=== PATIENT | female | born 1985 | race Caucasian/White ===

== ENCOUNTER 2018-08-01 16:14 | Emergency (ER) | payer MEDICAID, SELFPAY ==
[2018-08-01 16:15] VITALS: BP 155/118; PULSE 91; RESP 17; TEMP 36.7; O2SAT 99; BMI 32.0
--- NOTE | 2018-08-01 16:27 | RAD_ITS ---
STUDY: X-RAY - LEFT KNEE REASON FOR EXAM: Female, 33 years old. Status post fall left knee pain and abrasion TECHNIQUE: 4 view(s) of the knee. COMPARISON: None. FINDINGS: Normal visualized distal femur. Normal visualized proximal tibia and fibula. Normal proximal tibiofibular articulation. There is enthesopathy at the quadriceps insertion. There is mild degenerative arthrosis of the medial femorotibial compartment. Normal lateral femorotibial compartment. Normal patellofemoral articulation. The soft tissue structures are unremarkable. RAD/Knee 4 or More Views IMPRESSION: Mild degenerative change no visualized acute fracture. Electronically Signed: Meeta Arcos MD at 16:57 EST Tel , Service support ,
[2018-08-01] MEDS: Naproxen 500 MG Tablet PO (16:38)
--- NOTE | 2018-08-01 17:06 | ED.VISSUMM ---
- ER Visit Summary Date of Service: 08/01/18 Chief Complaint: Left knee injury History of Present Illness: The patient is a 33 F who tripped and fell onto her patio today, falling onto her left knee. She denies pain at her hip or ankle. She complains of pain only to the anterior left knee. She has been able to ambulate. She has not yet taken anything for pain. Physical Examination: Vital signs on arrival include a blood pressure of 155/118, otherwise unremarkable. Patient sitting upright in bed no acute distress. Head neck examination is unremarkable. Heart is regular rate and rhythm. Lungs sounds clear. Lower extreme examination reveals abrasions to the left anterior knee. She has full range of motion. There is mild anterior left knee tenderness. Strong distal pulses are appreciated. There is no tenderness at the hip or ankle. Test Results: Left knee x-rays reveal mild degenerative changes. Emergency Department Course and Treatment: Patient is given Naprosyn will be given a prescription for the same. Treatment Plan: [] Disposition: Discharge Impression: Left knee contusion status post fall This note was generated with [employer] dictation software. It may contain incorrect words, spelling, and punctuation that were not noted in review of the chart prior to signing ED Disposition - Plan for ED Patient: Chief Complaint: Lower Extremity Injury Referrals: Jamie Zhu MD [Primary Care Provider] -
--- NOTE | 2018-08-01 17:08 | ED.DEP ---
ED Disposition - Plan for ED Patient: Disposition: Home or Assisted Living Chief Complaint: Lower Extremity Injury Instructions: ED Contusion Lower Ext Prescriptions: Naproxen [Naprosyn] 500 mg PO BID PRN PRN #20 tablet PRN Reason: Pain Referrals: Jamie Zhu MD [Primary Care Provider] - 10-14 Days if not better
[2018-08-01 17:13] VITALS: BP 118/73; PULSE 56; RESP 15; O2SAT 96
--- OUTSIDE RECORDS SUMMARY | 2018-11-05 07:23 | XMS RPT_ITS ---
:1985 Author Organization OHIP Care Team Providers Name Role Phone Jamie Zhu Primary Care Unavailable Wanda Askew Attending Unavailable Jamie Zhu Primary Care Unavailable Zion Pereira Attending Unavailable PROBLEMS PROBLEMS DATE TYPE CONDITION / CODE ATTENDING STATUS SOURCE 09/03/2018 Unknown S20.229A - Zion Pereira Active [facility] of [facility] unspecified [facility] Hospital wall of thorax, Repository initial encounter / S20.229A(ICD-10) PROCEDURES PROCEDURES No Procedure Records FoundRESULTS RESULTS EMERGENCY DEPARTMENT Observed: 09/03/2018 Status: F Source: [place] SUMMARY 11:50 PM [facility] [place] Medical Records Department [address] [place] [address] Emergency Department Summary 09/03/18 1723 MR#: [id number] Acct: [id number] Name: MAGALY KAY Rep #: [id number] : 1985 33 From: Zion Pereira MD PCP: Jamie Zhu MD Status: DEP ER - ER Visit Summary Date of Service: 09/03/18 Chief Complaint: Back pain History of Present Illness: The patient is a 33 F with low back pain. The patient slipped on stairs. She landed on her back and complains of lower back pain, worse on the left side. No other injuries or pains. No loss of consciousness. Pain is worse with moving and breathing. No weakness or numbness. No change in bowel or bladder. Physical Examination: Afebrile and vital signs unremarkable. Head and neck are atraumatic. Abdomen soft. Back is tender to palpation over the mid lumbar spine. There is an associated area of bruising. Otherwise skin normal. Strength and sensation normal. Test Results: X-rays were negative. Emergency Department Course and Treatment: Patient treated with [place], naproxen, and Flexeril. She received a short course of the same. Follow-up with primary care. Treatment Plan: As above Disposition: Discharge Impression: 1. Lumbar back contusion This note was generated with [employer] dictation software. It may contain incorrect words, spelling, and punctuation that were not noted in review of the chart prior to signing ED Disposition - Plan for ED Patient: Chief Complaint: Back Referrals: Jamie Zhu MD [Primary Care Provider] - What to do if you have Problems For any increased pain, shortness of breath, bleeding, nausea or vomiting, chest pain, or any unexpected problems, contact your Primary Care Provider. Call [facility] ([phone]) or report to the closest Emergency Room. Call 911 if necessary. 09/03/18 2140 <Electronically signed by Zion Pereira MD> Date Zion Pereira MD Cosigner Signature (If Indicated): Date CC: Jamie Zhu MD DISCHARGE INSTRUCTION Observed: 09/03/2018 Status: F Source: [place] 11:50 PM [facility] [place] [facility] Medical Records Department [address] [place] [address] Discharge Instruction 09/03/18 1725 MR#: [id number] Acct: [id number] Name: KAYMAGALY Rep #: [id number] : 1985 33 From: Zion Pereira MD PCP: Jamie Zhu MD Status: DEP ER ED Disposition - Plan for ED Patient: Chief Complaint: Back Instructions: ED Low Back Pain Injury Prescriptions: Hydrocodone Bitart/Apap 5-325 [[place] 5MG-325MG] 1 tab PO Q6H PRN PRN 2 Days #8 tab PRN Reason: Pain Naproxen [Naprosyn] 500 mg PO BID #14 tab Cyclobenzaprine [Flexeril] 10 mg PO TID PRN #20 tab PRN Reason: Muscle Spasm Referrals: Jamie Zhu MD [Primary Care Provider] - What to do if you have Problems For any increased pain, shortness of breath, bleeding, nausea or vomiting, chest pain, or any unexpected problems, contact your Primary Care Provider. Call [facility] ([phone]) or report to the closest Emergency Room. Call 911 if necessary. 09/03/18 2350 <Electronically signed by iZon Pereira MD> Date Zion Pereira MD Cosigner Signature (If Indicated): Date CC: Jamie Zhu MD LUMBAR SPINE 2 OR 3 Observed: 09/03/2018 Status: F Source: [place] VIEWS 4:37 PM [facility] [place] [facility] Imaging Services [address] [place] [address] Lumbar Spine 2 or 3 Views MR#: [id number] Acct: [id number] Name: MAGALY KAY Rep #: [id number] : 1985 F 33 From: Gutierrez Moulton MD PCP: Jamie Zhu MD Status: [facility] ER Study: Lumbar Spine 2 or 3 Views Date of Exam: 09/03/18 Exam# [id number] Ordering Dr: Zion Pereira MD STUDY: X-RAY - LUMBAR SPINE REASON FOR EXAM: Female, 33 years old. Low back pain. Fall. TECHNIQUE: 3 view(s) of the lumbar spine were obtained. COMPARISON: None FINDINGS: Normal lumbar lordosis. There is no substantial scoliosis. There is a normal alignment of the vertebrae. Normal vertebral bodies and endplates. Normal disc space heights. There is no demonstrated fracture. The soft tissue structures are unremarkable. RAD/Lumbar Spine 2 or 3 Views IMPRESSION: Normal x-ray examination of the lumbar spine. Electronically Signed: Gutierrez Moulton MD at 17:01 EST , Service support , CC: Zion Pereira MD; Jamie Zhu MD Community Administrator: Signed EMERGENCY DEPARTMENT Observed: 08/02/2018 Status: F Source: [place] SUMMARY 12:09 AM [facility] [place] [facility] Medical Records Department [address] [place] [address] Emergency Department Summary 08/01/18 1706 MR#: [id number] Acct: [id number] Name: MAGALY KAY Rep #: [id number] : 1985 33 From: Wanda Askew MD PCP: Jamie Zhu MD Status: DEP ER - ER Visit Summary Date of Service: 08/01/18 Chief Complaint: Left knee injury History of Present Illness: The patient is a 33 F who tripped and fell onto her patio today, falling onto her left knee. She denies pain at her hip or ankle. She complains of pain only to the anterior left knee. She has been able to ambulate. She has not yet taken anything for pain. Physical Examination: Vital signs on arrival include a blood pressure of 155/118, otherwise unremarkable. Patient sitting upright in bed no acute distress. Head neck examination is unremarkable. Heart is regular rate and rhythm. Lungs sounds clear. Lower extreme examination reveals abrasions to the left anterior knee. She has full range of motion. There is mild anterior left knee tenderness. Strong distal pulses are appreciated. There is no tenderness at the hip or ankle. Test Results: Left knee x-rays reveal mild degenerative changes. Emergency Department Course and Treatment: Patient is given Naprosyn will be given a prescription for the same. Treatment Plan: [] Disposition: Discharge Impression: Left knee contusion status post fall This note was generated with [employer] dictation software. It may contain incorrect words, spelling, and punctuation that were not noted in review of the chart prior to signing ED Disposition - Plan for ED Patient: Chief Complaint: Lower Extremity Injury Referrals: Jamie Zhu MD [Primary Care Provider] - What to do if you have Problems For any increased pain, shortness of breath, bleeding, nausea or vomiting, chest pain, or any unexpected problems, contact your Primary Care Provider. Call [facility] ([phone]) or report to the closest Emergency Room. Call 911 if necessary. 08/02/18 0009 <Electronically signed by Wanda Askew MD> Date Wanda Askew MD Cosigner Signature (If Indicated): Date CC: Jamie Zhu MD DISCHARGE INSTRUCTION Observed: 08/01/2018 Status: F Source: [place] 5:09 PM [facility] [place] Medical Records Department [facility] [place] [address] Discharge Instruction 08/01/18 1708 MR#: [id number] Acct: [id number] Name: MAGALY KAY Rep #: [id number] : 1985 33 From: Wanda Askew MD PCP: Jamie Zhu MD Status: REG ER ED Disposition - Plan for ED Patient: Disposition: Home or Assisted Living Chief Complaint: Lower Extremity Injury Instructions: ED Contusion Lower Ext Prescriptions: Naproxen [Naprosyn] 500 mg PO BID PRN PRN #20 tablet PRN Reason: Pain Referrals: Jamie Zhu MD [Primary Care Provider] - 10-14 Days if not better What to do if you have Problems For any increased pain, shortness of breath, bleeding, nausea or vomiting, chest pain, or any unexpected problems, contact your Primary Care Provider. Call [facility] ([phone]) or report to the closest Emergency Room. Call 911 if necessary. 08/01/18 1709 <Electronically signed by Wanda Askew MD> Date Wanda Askew MD Cosigner Signature (If Indicated): Date CC: Jamie Zhu MD KNEE 4 OR MORE Observed: 08/01/2018 Status: F Source: [place] VIEWS 4:28 PM [facility] [place] Imaging Services [address] [place] [address] Knee 4 or More Views MR#: [id number] Acct: [id number] Name: MAGALY KAY Rep #: [id number] : 1985 F 33 From: Meeta Arcos MD PCP: Jamie Zhu MD Status: REG ER Study: Knee 4 or More Views Date of Exam: 08/01/18 Exam# [id number] Ordering Dr: Wanda Askew MD STUDY: X-RAY - LEFT KNEE REASON FOR EXAM: Female, 33 years old. Status post fall left knee pain and abrasion TECHNIQUE: 4 view(s) of the knee. COMPARISON: None. FINDINGS: Normal visualized distal femur. Normal visualized proximal tibia and fibula. Normal proximal tibiofibular articulation. There is enthesopathy at the quadriceps insertion. There is mild degenerative arthrosis of the medial femorotibial compartment. Normal lateral femorotibial compartment. Normal patellofemoral articulation. The soft tissue structures are unremarkable. RAD/Knee 4 or More Views IMPRESSION: Mild degenerative change no visualized acute fracture. Electronically Signed: Meeta Arcos MD at 16:57 EST Tel , Service support , CC: Wanda Askew MD; Jamie Zhu MD Community Administrator: Signed ALLERGIES ALLERGIES DATE TYPE / CODE NAME / CODE REACTION SEVERITY SOURCE 08/01/2018 Drug omeprazole/F Unknown Unknown [place] [facility] Allergy/4160 [id number](RX [facility] 31951(SNOMED NORM) Repository CT) 08/01/2018 Drug lamotrigine/ Unknown Unknown [facility]/4160 [id number](R Hospital 69059(SNOMED XNORM) Repository CT) 08/01/2018 Drug risperidone/ Unknown Unknown [place] [facility] Allergy/4160 [id number]( Hospital 10273(SNOMED XNORM) Repository CT) ENCOUNTERS ENCOUNTERS ADMIT/DISCHARGE ACCOUNT ADMITTING ENCOUNTER LOCATION SOURCE NUMBER CLASS 09/03/2018/ [id number] Emergency [facility] Da 9 [facility] ing:ED Repository 08/01/2018/ [id number] Emergency [place] Da 8 [facility] ing:ED Repository PAYERS PAYERS ENCOUNTER GUARANTOR PAYER SUBSCRIBER SOURCE 09/03/2018 MAGALY Lin Primary MAGALY Ceballos Da [id number] NOLD Insurance:CARESOURCEP SANDERSDOB: [facility] Number: [id number] Hospital 94503Vcs: [phone]) [id number] Repository [phone] () Date:2018-09-03 [address]ATTN: [place] [address]TF: 09/03/2018 Secondary NOT GIVENUNK [place] Insurance:SELF PAY [facility] Number: Effective Repository Date:2018-09-03 08/01/2018 MAGALY M Primary MAGALY Arana [id number] [place] [facility] Number: [id number] Hospital 12[address]Iyp: [phone] [id number] Repository [phone] () Date:2018-08-01P [address]ATTN: [place] [address]TS: 08/01/2018 Secondary NOT GIVENUNK [place] Insurance:SELF PAY [facility] Number: Effective Repository Date:2018-08-01
== END 2018-08-01 17:18 | disposition home or self-care (01) ==
PROVIDERS: Emergency Provider Emergency Medicine; Family Provider Family Medicine; PCP Family Medicine
DX: S80.02XA Contusion of left knee, initial encounter (principal); W01.10XA Fall on same level from slipping, tripping and stumbling with subsequent striking against unspecified object, initial encounter; Y93.9 Activity, unspecified; Y92.008 Other place in unspecified non-institutional (private) residence as the place of occurrence of the external cause; Y99.9 Unspecified external cause status; F32.9 Major depressive disorder, single episode, unspecified; F41.9 Anxiety disorder, unspecified; Z72.0 Tobacco use; Z79.899 Other long term (current) drug therapy
CPT/HCPCS: 73564; 99283

== ENCOUNTER 2018-09-03 15:41 | Emergency (ER) | payer MEDICAID, SELFPAY ==
[2018-09-03 15:42] VITALS: BP 157/117; PULSE 99; RESP 16; TEMP 36.4; O2SAT 100; BMI 30.9
--- NOTE | 2018-09-03 16:43 | RAD_ITS ---
STUDY: X-RAY - LUMBAR SPINE REASON FOR EXAM: Female, 33 years old. Low back pain. Fall. TECHNIQUE: 3 view(s) of the lumbar spine were obtained. COMPARISON: None FINDINGS: Normal lumbar lordosis. There is no substantial scoliosis. There is a normal alignment of the vertebrae. Normal vertebral bodies and endplates. Normal disc space heights. There is no demonstrated fracture. The soft tissue structures are unremarkable. RAD/Lumbar Spine 2 or 3 Views IMPRESSION: Normal x-ray examination of the lumbar spine. Electronically Signed: Gutierrez Moulton MD at 17:01 EST , Service support ,
[2018-09-03] MEDS: Naproxen 500 MG Tablet PO (16:54)
[2018-09-03] MEDS: HYDROcodone Bitartrate/Apap 5/325 Tablet PO (16:54)
--- NOTE | 2018-09-03 17:25 | ED.DCSUM_ITS ---
- ER Visit Summary Date of Service: 09/03/18 Chief Complaint: Back pain History of Present Illness: The patient is a 33 F with low back pain. The patient slipped on stairs. She landed on her back and complains of lower back pain, worse on the left side. No other injuries or pains. No loss of consciousness. Pain is worse with moving and breathing. No weakness or numbness. No change in bowel or bladder. Physical Examination: Afebrile and vital signs unremarkable. Head and neck are atraumatic. Abdomen soft. Back is tender to palpation over the mid lumbar spine. There is an associated area of bruising. Otherwise skin normal. Strength and sensation normal. Test Results: X-rays were negative. Emergency Department Course and Treatment: Patient treated with [place], naproxen, and Flexeril. She received a short course of the same. Follow-up with primary care. Treatment Plan: As above Disposition: Discharge Impression: 1. Lumbar back contusion This note was generated with [employer] dictation software. It may contain incorrect words, spelling, and punctuation that were not noted in review of the chart prior to signing ED Disposition - Plan for ED Patient: Chief Complaint: Back Referrals: Jamie Zhu MD [Primary Care Provider] -
--- NOTE | 2018-09-03 17:25 | ED.DEP ---
ED Disposition - Plan for ED Patient: Chief Complaint: Back Instructions: ED Low Back Pain Injury Prescriptions: Hydrocodone Bitart/Apap 5-325 [[place] 5MG-325MG] 1 tab PO Q6H PRN PRN 2 Days #8 tab PRN Reason: Pain Naproxen [Naprosyn] 500 mg PO BID #14 tab Cyclobenzaprine [Flexeril] 10 mg PO TID PRN #20 tab PRN Reason: Muscle Spasm Referrals: Jamie Zhu MD [Primary Care Provider] -
--- OUTSIDE RECORDS SUMMARY | 2018-11-08 16:33 | XMS RPT_ITS ---
:1985 Author Organization OHIP Care Team Providers Name Role Phone Jamie Zhu Primary Care Unavailable Zion Pereira Attending Unavailable Jamie Zhu Primary Care Unavailable Wanda Askew Attending Unavailable PROBLEMS PROBLEMS DATE TYPE CONDITION / CODE ATTENDING STATUS SOURCE 09/03/2018 Unknown S20.229A - Zion Pereira Active [facility] Contusion of [facility] unspecified [facility] Hospital wall of thorax, Repository initial encounter / S20.229A(ICD-10) PROCEDURES PROCEDURES No Procedure Records FoundRESULTS RESULTS EMERGENCY DEPARTMENT Observed: 09/03/2018 Status: F Source: DA SUMMARY 11:50 PM [facility] [place] [facility] Medical Records Department [address] [place] [address] Emergency Department Summary 09/03/18 1723 MR#: [id number] Acct: [id number] Name: MAGALY KAY Rep #: [id number] : 1985 33 From: Zion Pereira MD [...] Department Course and Treatment: Patient treated with [place], naproxen, and Flexeril. She received a short course of the same. Follow-up with primary care. Treatment Plan: As above Disposition: Discharge Impression: 1. Lumbar back contusion This note was generated with [employer] dictation software. It may contain incorrect words, [...] your Primary Care Provider. Call [facility] ([phone]) or report to the closest Emergency Room. Call 911 if necessary. 09/03/18 2420 <Electronically signed by Zion Pereira MD> Date Zion Pereira MD Cosigner Signature (If Indicated): Date CC: Jamie Zhu MD DISCHARGE INSTRUCTION Observed: 09/03/2018 Status: F Source: [place] 11:50 PM [facility] [place] [facility] Medical Records Department [address] [place] [address] Discharge Instruction 09/03/18 1725 MR#: [id number] Acct: [id number] Name: KAYMAGALY Rep #: [id number] : 1985 33 From: Zion Pereira MD PCP: Jamie Zhu MD Status: DEP ER ED Disposition - Plan for ED Patient: Chief Complaint: Back Instructions: ED Low Back Pain Injury Prescriptions: Hydrocodone Bitart/Apap 5-325 [[place] 5MG-325MG] 1 tab PO Q6H PRN PRN [...] problems, contact your Primary Care Provider. Call [place] [facility] ([phone]) or report to the closest Emergency Room. Call 911 if necessary. 09/03/18 2350 <Electronically signed by Zion Pereira MD> Date Zion Pereira MD Cosigner Signature (If Indicated): Date CC: Jamie Zhu MD LUMBAR SPINE 2 OR 3 Observed: 09/03/2018 Status: F Source: [place] VIEWS 4:37 PM [facility] [place] [facility] Imaging Services [address] [place] [address] Lumbar Spine 2 or 3 Views MR#: [id number] Acct: [id number] Name: MAGALY KAY Rep #: [id number] : 1985 F 33 From: Gutierrez Moulton MD PCP: Jamie Zhu MD Status: [facility] ER Study: Lumbar Spine 2 or 3 Views Date of Exam: 09/03/18 Exam# [id number] Ordering Dr: Zion Pereira MD STUDY: X-RAY [...] CC: Zion Pereira MD; Jamie Zhu MD Furnace Repair Mechanic: Signed EMERGENCY DEPARTMENT Observed: 08/02/2018 Status: F Source: [place] SUMMARY 12:09 AM [facility] [place] [facility] Medical Records Department [address] [place] [address] Emergency Department Summary 08/01/18 1706 MR#: [id number] Acct: [id number] Name: MAGALY KAY Rep #: [id number] : 1985 33 From: Wanda Askew MD [...] post fall This note was generated with [employer] dictation software. It may contain incorrect words, [...] problems, contact your Primary Care Provider. Call [place] [facility] ([phone]) or report to the closest Emergency Room. Call 911 if necessary. 08/02/18 0009 <Electronically signed by Wanda Askew MD> Date Wanda Askew MD Cosigner Signature (If Indicated): Date CC: Jamie Zhu MD DISCHARGE INSTRUCTION Observed: 08/01/2018 Status: F Source: [place] 5:09 PM [facility] [place] [facility] Medical Records Department [facility] [place] [address] Discharge Instruction 08/01/18 1708 MR#: [id number] Acct: [id number] Name: MAGALY KAY Rep #: [id number] : 1985 33 From: Wanda Askew MD [...] your Primary Care Provider. Call [facility] ([phone]) or report to the closest Emergency Room. Call 911 if necessary. 08/01/18 1709 <Electronically signed by Wanda Askew MD> Date Wanda Askew MD Cosigner Signature (If Indicated): Date CC: Jamie Zhu MD KNEE 4 OR MORE Observed: 08/01/2018 Status: F Source: [place] VIEWS 4:28 PM [facility] [place] [facility] Imaging Services [address] [place] [address] Knee 4 or More Views MR#: [id number] Acct: [id number] Name: MAGALY KAY Rep #: [id number] : 1985 F 33 From: Meeta Arcos MD PCP: Jamie Zhu MD Status: REG ER Study: Knee 4 or More Views Date of Exam: 08/01/18 Exam# [id number] Ordering Dr: Wanda Askew MD STUDY: X-RAY [...] CC: Wanda Askew MD; Jamie Zhu MD Furnace Repair Mechanic: Signed ALLERGIES ALLERGIES DATE TYPE / CODE NAME / CODE REACTION SEVERITY SOURCE 08/01/2018 Drug omeprazole/F Unknown Unknown [place] [facility]/4160 [id number]([facility] 44788(SNOMED NORM) Repository CT) 08/01/2018 Drug lamotrigine/ Unknown Unknown [facility]/4160 [id number](R Hospital 27671(SNOMED XNORM) Repository CT) 08/01/2018 Drug risperidone/ Unknown Unknown [place] [facility] All[facility]/4160 [id number]( Hospital 73238(SNOMED XNORM) Repository CT) ENCOUNTERS ENCOUNTERS ADMIT/DISCHARGE ACCOUNT ADMITTING ENCOUNTER LOCATION SOURCE NUMBER CLASS 09/03/2018/ [id number] Emergency Da Da 9 [facility] ing:ED Repository 08/01/2018/ [id number] Emergency [place] Da 8 [facility] ing:ED Repository PAYERS PAYERS ENCOUNTER GUARANTOR PAYER SUBSCRIBER SOURCE 09/03/2018 MAGALY Lin Primary MAGALY Ceballos Da [id number] NOLD Insurance:CARESOURCEP SANDERSDOB: [facility] Number: [id number] Hospital [address]Dyz: [phone] [id number] Repository [phone] () Date:2018-09-03 [address]ATTN: [place] [address]JB: 09/03/2018 Secondary NOT GIVENUNK [place] Insurance:SELF PAY [facility] Number: Effective Repository Date:2018-09-03 08/01/2018 MAGALY M Primary MAGALY Arana [id number] NOLD Insurance[facility] Number: [id number] Hospital [address]Mzt: [phone]) [id number] Repository [phone] () Date:2018-08-01P [address]ATTN: [place] [address]QQ: 08/01/2018 Secondary NOT GIVENUNK [place] Insurance:SELF PAY [facility] Number: Effective Repository Date:2018-08-01
== END 2018-09-03 17:40 | disposition home or self-care (01) ==
PROVIDERS: Emergency Provider Emergency Medicine; Family Provider Family Medicine; PCP Family Medicine
DX: S30.0XXA Contusion of lower back and pelvis, initial encounter (principal); W10.9XXA Fall (on) (from) unspecified stairs and steps, initial encounter; Y93.9 Activity, unspecified; Y92.9 Unspecified place or not applicable; Y99.9 Unspecified external cause status; Z72.0 Tobacco use
CPT/HCPCS: 72100; 99282

== ENCOUNTER 2019-05-10 05:15 | Emergency (ER) | payer MEDICAID, SELFPAY ==
[2019-05-10 05:15] VITALS: BP 214/133; PULSE 95; RESP 26; TEMP 36.1; O2SAT 88; BMI 31.6
--- NOTE | 2019-05-10 05:20 | RAD_ITS ---
STUDY: X-RAY CHEST REASON FOR EXAM: Female, 34 years old. SOB TECHNIQUE: Single frontal view of the chest. COMPARISON: 03/28/2016 FINDINGS: The lungs are clear and expanded. There is no demonstrated pleural abnormality. Normal size heart. Normal mediastinum and bony. Normal visualized pulmonary arteries. Normal visualized aortic arch and descending thoracic aorta. Normal visualized thoracic spine. Normal visualized ribs, clavicles, and shoulders. There is no demonstrated abnormality of the visualized soft tissue structures of the upper abdomen. RAD/Chest 1 View (Portable) IMPRESSION: Normal x-ray examination of the chest. Electronically Signed: Jamie Kothari MD at 5:52 EDT Tel , Service support ,
[2019-05-10 05:24] VITALS: O2SAT 95
[2019-05-10 05:30] VITALS: PULSE 85; RESP 14; O2SAT 97
[2019-05-10] MEDS: Ipratropium/Albuterol Sulfate 3 ML AMPUL.NEB INHALATION (05:30)
[2019-05-10] MEDS: Albuterol 2.5 MG/3 ML VIAL.NEB. INHALATION ×2 (05:30→05:53)
[2019-05-10] MEDS: predniSONE 20 MG Tablet 60 MG PO (05:42)
--- NOTE | 2019-05-10 05:43 | ED.VIS.DYS ---
History of Present Illness Chief Complaint: Asthma Informant: Patient Narrative: Patient presenting for evaluation secondary to shortness of breath. Patient has an underlying history of asthma. She reports that she has been out of her albuterol inhaler over the course of about the last week. She states that she has had a mild cough associated with production of clear sputum. She reports that she woke up tonight and she was feeling significantly short of breath. That was associated with wheezing, she did not have anything to alleviate that as she was out of her inhaler. Patient denies any chest pain or fevers. Patient is a smoker. Past Medical History - Allergies and Home Meds Allergies/Adverse Reactions: Allergies lamotrigine [From Lamictal] Allergy (Verified 08/01/18 16:14) Unknown omeprazole Allergy (Verified 08/01/18 16:14) Unknown risperidone Allergy (Verified 08/01/18 16:14) Unknown Primary Care Physician: Jamie Zhu MD [Primary Care Provider] - Past Medical History: - - Asthma Surgical History: tonsillectomy, - - Tubal ligation. Smoking Status: Current every day smoker Review of Systems All systems negative except as indicated General: Denies: Chills, Fever Respiratory: Reports: Dyspnea, Cough Physical Exam Vital Signs/Narrative: Vital Signs Temp Pulse Resp BP Pulse Ox 05/10/19 05:30 85 14 97 05/10/19 05:15 97 F L 95 26 H 214/133 H 88 General: Well nourished, Well developed, Acute Distress - Mild secondary to respiratory discomfort Head: Normocephalic, Atraumatic Eyes: Perrl, EOMI ENT: Moist mucous membranes, No rhinorrhea Neck: Supple, Nontender Cardiovascular: Regular rate, Regular rhythm, No murmurs Respiratory: - - Patient is speaking in 5-10 word sentences. She has some increased respiratory effort but does not appear to be in overt respiratory distress. Prolonged expiratory phase with wheezes are noted throughout the lung cloud. Patient does not have retractions at this time. Abdomen: Soft, Nontender, Nondistended, Normal bowel sounds Back: Nontender, Normal Inspection Extremities: Nontender, No edema Skin: Diaphoresis, - - Cool Neurological: Alert, Oriented x3, Cranial nerves II-XII grossly intact, Normal Strength, Normal Sensation Psychological: Normal affect, Normal Mood Diagnostic/Tx/Re-eval Chest X-Ray - ED: 1 View, Read by ED Physician, Read by Radiologist, Normal - Medical Decision Making Patient presented for evaluation secondary to shortness of breath. On initial presentation, the patient seemed to be having a moderate amount of difficulty breathing, and had some diaphoresis. IV was established laboratory studies were obtained. Single view of the chest by my personal interpretation as well as radiology is found to be negative. CBC was unremarkable. Patient was given a DuoNeb and 2 albuterol treatments as well as prednisone. She had significant symptomatic improvement, and was actually able to ambulate in the emergency department to not be overly dyspneic, and maintain saturations 95% and above. At this point I believe that the patient's appropriate disposition is home with prednisone and albuterol. Patient was given signs and symptoms for which to return. She voiced understanding of this. Patient was noted to be hypertensive upon arrival, I believe that likely secondary to her discomfort. She will follow-up with primary care. Disposition: Home ED Disposition - Plan for ED Patient: Disposition: Home or Assisted Living Diagnosis: Asthma exacerbation Instructions: ASTHMA, Acute (Adult) Prescriptions: Prednisone [Deltasone] 60 mg PO DAILY #15 tab Prescription Printed Albuterol Aerosols [Ventolin Aerosols] 2.5 mg INHALATION Q4H PRN #25 vial Prescription Printed Albuterol Inhaler [Ventolin Hfa] 2 puff INHALATION Q4H PRN PRN #1 inhaler PRN Reason: Wheezing Prescription Printed Referrals: Jamie Zhu MD [Primary Care Provider] - 3-5 Days
[2019-05-10 05:53] VITALS: PULSE 89; RESP 18
[2019-05-10 06:00] LABS: Absolute Lymphocyte Count 3.16 X10^3/uL (0.83-4.51); Absolute Neutrophil Count 3.7 X10^3/uL (2.0-7.7); Basophil# 0.12 X10^3/uL; Basophil% 1.4 % (0-1); Eosinophil# 0.53 X10^3/uL; Eosinophils% 6.3 % (0-5); Hematocrit 43.3 % (37-47); Hemoglobin 13.3 g/dL (12.0-15.0); Lymphocyte # 3.16 X10^3/ul (4.0); Lymphocyte % 37.4 % (19-41); Mean Corp Hgb Conc 30.7 g/dL (32-36); Mean Corpuscular Hgb 25.3 pg (27.0-32.0); Mean Corpuscular Volume 82.5 fL (81-99); Mean Platelet Vol. 11.4 fl (6.2-12.0); Monocyte# 0.87 X10^3/uL; Monocyte% 10.3 % (0-10); NRBC Flagged by Analyzer 0 % (0-5); Neutrophil # 3.73 X10^3/uL (2.7-7.7); Neutrophil % 44.2 % (47-70); Platelet Count 444 K/mm3 (150-450); RBC Distribution Width CV 15.9 % (11.6-14.6); RBC Distribution Width SD 47.3 fl (35.1-43.9); Red Blood Count 5.25 M/mm3 (4.2-5.4); White Blood Count 8.4 K/mm3 (4.4-11.0)
[2019-05-10 06:22] LABS: Anion Gap 6 (5-15); BUN 8 mg/dL (7-18); BUN/Creat Ratio 11.6 RATIO (10-20); Calcium,Total 8.3 mg/dL (8.5-10.1); Chloride 106 mmol/L (98-107); Creatinine, Serum 0.69 mg/dL (0.55-1.02); EST Glomerular Filtration Rate 104 mL/min (>60); Est Glom Filt Rate - Afr Amer 126 mL/min (>60); Estimated Creatinine Clearance 103.38 ml/min; Glucose 117 mg/dL (74-106); Potassium 3.8 mmol/L (3.5-5.1); Sodium Level 143 mmol/L (136-145)
[2019-05-10 06:24] VITALS: BP 136/84; PULSE 99; RESP 18; O2SAT 95
== END 2019-05-10 06:28 | disposition home or self-care (01) ==
PROVIDERS: Emergency Provider Emergency Medicine; Family Provider Family Medicine; PCP Family Medicine
DX: J45.901 Unspecified asthma with (acute) exacerbation (principal); R03.0 Elevated blood-pressure reading, without diagnosis of hypertension; F17.200 Nicotine dependence, unspecified, uncomplicated; Z79.899 Other long term (current) drug therapy; Z88.8 Allergy status to other drugs, medicaments and biological substances
CPT/HCPCS: 71045; 80048; 85025; 94640; 99285; A4216

== ENCOUNTER 2019-05-21 22:22 | Emergency (ER) | payer MEDICAID, SELFPAY ==
[2019-05-21 22:24] VITALS: BP 145/97; PULSE 75; RESP 16; TEMP 37; O2SAT 98; BMI 32.3
--- NOTE | 2019-05-21 22:41 | ED.VIS.GEN ---
History of Present Illness Chief Complaint: Rash Narrative: Patient is a 34-year-old female who presents with a rash. She complains of a painful rash on the left upper back. She does has a history of shingles and believes that this is shingles again. No fevers nausea vomiting chest pain shortness of breath. Review of systems otherwise negative. She denies any recent illness. Past Medical History - Allergies and Home Meds Allergies/Adverse Reactions: Allergies lamotrigine [From Lamictal] Allergy (Verified 05/21/19 22:24) Unknown omeprazole Allergy (Verified 05/21/19 22:24) Unknown risperidone Allergy (Verified 05/21/19 22:24) Unknown Primary Care Physician: Jamie Zhu MD [Primary Care Provider] - Past Medical History: - - Asthma Surgical History: tonsillectomy, - - Tubal ligation. Smoking Status: Current every day smoker Review of Systems All systems negative except as indicated General: Denies: Fever Cardiovascular: Denies: Chest pain Respiratory: Denies: Dyspnea Gastrointestinal: Denies: Nausea, Vomiting Skin: Reports: Rash Physical Exam Vital Signs/Narrative: Vital Signs Temp Pulse Resp BP Pulse Ox 05/21/19 22:24 98.6 F 75 16 145/97 H 98 Inital Vital Signs reviewed: Yes General: Well nourished, Well developed Head: Normocephalic Eyes: EOMI ENT: Moist mucous membranes Neck: Supple Cardiovascular: Regular rate Respiratory: No distress Skin: Normal color, - - Patient has a small patch of vesicular rash in the left lower posterior thoracic region Neurological: Alert Psychological: Normal affect Diagnostic/Tx/Re-eval - Medical Decision Making Examination is consistent with shingles, she was given first dose of acyclovir here as well as a prescription for the same and was advised to follow-up as an outpatient. She was discharged. ED Disposition - Plan for ED Patient: Disposition: Home or Assisted Living Diagnosis: Shingles Instructions: Shingles (Herpes Zoster) Prescriptions: Acyclovir [Zovirax] 800 mg PO 5X/DAY #35 tab Prescription Printed Referrals: Jamie Zhu MD [Primary Care Provider] -
[2019-05-21] MEDS: Acyclovir 800 MG Tablet PO (23:05)
[2019-05-21 23:08] VITALS: PULSE 78; RESP 14; O2SAT 99
== END 2019-05-21 23:09 | disposition home or self-care (01) ==
LOC: ED 22:48
PROVIDERS: Emergency Provider Emergency Medicine; Family Provider Family Medicine; PCP Family Medicine
DX: B02.9 Zoster without complications (principal); J45.909 Unspecified asthma, uncomplicated; F17.200 Nicotine dependence, unspecified, uncomplicated; Z79.899 Other long term (current) drug therapy; Z88.8 Allergy status to other drugs, medicaments and biological substances
CPT/HCPCS: 99282

== ENCOUNTER 2019-07-31 07:43 | Observation (INO) | payer MEDICAID, SELFPAY ==
[2019-07-31] VITALS (10 sets, daily range): BP systolic 120–162; BP diastolic 76–113; PULSE 82–104; RESP 9–34; TEMP 36.1–36.7; O2SAT 86–98; BMI 33.3; BMI 33.1
--- NOTE | 2019-07-31 07:44 | RAD_ITS ---
STUDY: X-RAY CHEST REASON FOR EXAM: Female, 34 years old. Shortness of breath. Wheezing. TECHNIQUE: Single AP portable view of the chest. COMPARISON: Comparison is made with prior study dated May 10, 2019. FINDINGS: EKG electrodes are seen. The lungs are clear and expanded. There is no demonstrated pleural abnormality. Normal size heart. Normal mediastinum and bony. Normal visualized pulmonary arteries. Normal visualized aortic arch and descending thoracic aorta. Normal visualized thoracic spine. Normal visualized ribs, clavicles, and shoulders. There is no demonstrated abnormality of the visualized soft tissue structures of the upper abdomen. RAD/Chest 1 View (Portable) IMPRESSION: Normal x-ray examination of the chest. Electronically Signed: Josue Olsen, at 8:25 EST , Service support ,
[2019-07-31] MEDS: Ipratropium/Albuterol Sulfate 3 ML AMPUL.NEB INHALATION (07:54)
[2019-07-31] MEDS: Albuterol 2.5 MG/3 ML VIAL.NEB. INHALATION ×5 (07:56→09:32)
--- NOTE | 2019-07-31 08:01 | ED.DCSUM_ITS ---
- ER Visit Summary Date of Service: 07/31/19 Chief Complaint: Shortness of breath History of Present Illness: The patient is a [address] Zhu. She has a history of asthma. She reports that she ran out of her albuterol MDI yesterday. She has shortness of breath that began yesterday and had gradually gotten worse. She reports that it is much worse this morning. It severe. She reports that she has a cough here and there that is productive green sputum. She denies any blood in her sputum. No fever, chills, or chest pain. She reports that she had similar symptoms in the past with her asthma. She does smoke 1 pack/day. Physical Examination: Vitals: 96.9, 162/113, 97, 26, 65% on room air which is hypoxic General: Well-nourished and well-developed. Head: Normocephalic atraumatic. Neck: Supple, no lymphadenopathy. No JVD. Nontender. Cardiovascular: Regular rate and rhythm. No murmurs. Respiratory: Severe respiratory distress. She has wheezing bilaterally with greatly decreased air movement. Abdominal: Soft, nontender, nondistended, normal bowel sounds. No guarding, rebound, or peritoneal signs. Back: Nontender. Extremities: Nontender, no edema. Skin: Normal color, no rash. Neurologic: Alert and oriented ?3. Cranial nerves II through XII are intact. Normal strength and sensation. Patient is lethargic and falls asleep during questioning. However, she is appropriate when she is awake. She arouses to voice. Psych: Normal affect. Test Results: CBC shows eosinophils of 6 and monocytes of 10. Chem-7 shows a glucose 144 and calcium of 8.0. Flu was negative. test was negative. ABG shows a pH of 7.317 with a CO2 of 56.6 and PO2 of 91 on 6 L nasal cannula. Clinical Impression(s) from Imaging Studies Chest X-Ray 07/31/19 07:44 IMPRESSION: Normal x-ray examination of the chest. Electronically Signed: Josue Olsen, at 8:25 EST , Service support , Emergency Department Course and Treatment: Patient had an IV placed. She was given a liter of normal saline. She was given albuterol and Atrovent aerosols. She was given Solu-Medrol and magnesium IV. Altogether she received 5 albuterol and 1 Atrovent aerosol. On repeat exam her pulse ox is still 92% on 4 L nasal cannula. However, she looks much more comfortable. Treatment Plan: The patient was discussed with Dr. Reyes. She will be admitted to the hospital for further evaluation and treatment. Disposition: Admitted in improved, but serious condition. Impression: 1. Asthma exacerbation. 2. Hypoxia. 3. Critical care time 33 minutes. This note was generated with [employer] dictation software. It may contain incorrect words, spelling, and punctuation that were not noted in review of the chart prior to signing ED Disposition - Plan for ED Patient: Referrals: Jamie Zhu MD [Primary Care Provider] -
[2019-07-31] MEDS: 0.9% Normal Saline 1,000 ML 999 ML IV (08:09)
[2019-07-31] MEDS: MethylPREDNISolone 125 MG/2 ML Vial IV (08:10)
[2019-07-31 08:21] LABS: Allen Test POS; Base Excess 3 mmol/L (-2 to +2); Blood Gas Specimen Type ART; O2 Delivery Device Nasal Can; PO2 91 mmHG (75-100); SITE L Radial; SO2 96 % (95-99); Time Given 813; Total Carbon Dioxide 31 mmol/L; pCO2 56.6 mmHg (35-45); pH 7.32 (7.35-7.45)
[2019-07-31 08:24] LABS: Absolute Lymphocyte Count 2.12 X10^3/uL (0.83-4.51); Absolute Neutrophil Count 4.8 X10^3/uL (2.0-7.7); Basophil# 0.05 X10^3/uL; Basophil% 0.6 % (0-1); Eosinophil# 0.53 X10^3/uL; Eosinophils% 6.3 % (0-5); Hematocrit 38.9 % (37-47); Lymphocyte # 2.12 X10^3/ul (4.0); Lymphocyte % 25.2 % (19-41); Mean Corp Hgb Conc 30.8 g/dL (32-36); Mean Corpuscular Hgb 26.2 pg (27.0-32.0); Mean Corpuscular Volume 84.9 fL (81-99); Mean Platelet Vol. 10.9 fl (6.2-12.0); Monocyte# 0.85 X10^3/uL; Monocyte% 10.1 % (0-10); NRBC Flagged by Analyzer 0 % (0-5); Neutrophil # 4.82 X10^3/uL (2.7-7.7); Neutrophil % 57.4 % (47-70); Platelet Count 341 K/mm3 (150-450); RBC Distribution Width CV 16.1 % (11.6-14.6); RBC Distribution Width SD 50.2 fl (35.1-43.9); Red Blood Count 4.58 M/mm3 (4.2-5.4); White Blood Count 8.4 K/mm3 (4.4-11.0)
[2019-07-31 08:37] LABS: Internal QC Validated? YES +Cl - CLEAR BKGD
[2019-07-31 08:38] LABS: Pregnancy, Serum, hCG Quali. NEGATIVE Negative
[2019-07-31 08:43] LABS: Anion Gap 3 (5-15); BUN 8 mg/dL (7-18); BUN/Creat Ratio 9.8 RATIO (10-20); Chloride 104 mmol/L (98-107); Creatinine, Serum 0.81 mg/dL (0.55-1.02); EST Glomerular Filtration Rate 85 mL/min (>60); Est Glom Filt Rate - Afr Amer 103 mL/min (>60); Estimated Creatinine Clearance 88.06 ml/min; Glucose 144 mg/dL (74-106); Potassium 3.5 mmol/L (3.5-5.1); Sodium Level 139 mmol/L (136-145)
[2019-07-31] MEDS: Magnesium Sulfate 2 GM IV IV (08:47)
--- NOTE | 2019-07-31 10:40 | PCM.HP.STD ---
Problem List (1) Acute respiratory failure Status: Acute (2) Acute severe asthma Status: Acute (3) Tobacco abuse Status: Chronic (4) Bronchial asthma Status: Chronic History of Present Illness Date of Admission: 07/31/19 Chief Complaint: Shortness of breath. The patient is a 34 year old F patient with past medical history as mentioned above presented to the emergency room because of shortness of breath. Her symptoms started 2 days ago with gradually progressive increasing shortness of breath, onset was with exertion but worsened and became even at rest, not relieved with rest associated with productive cough with minimal sputum as well as wheezing and without fever or chills. She reported associated nasal congestion. Denied chest pain. She stated that she ran out of her albuterol inhaler yesterday. Denied sick contacts. She denies previous admissions to the hospital for acute asthma exacerbation and she denied ICU admissions or mechanical ventilation for asthma exacerbation. In the emergency department, patient was very dyspneic, tachypneic and she was hypoxic pulse ox was 65% on room air upon arrival. She received IV Solu-Medrol, IV magnesium sulfate, DuoNeb nebulizer x1 and 4 rounds of albuterol nebulizer and she remained very dyspneic and tachypneic with audible wheezing. She is requiring up to 6 L of oxygen, was tachycardic and blood pressure was elevated upon arrival. Her blood pressure improved as well as a heart rate. Routine blood work was unremarkable. ABG revealed pH of 7.32, PCO2 56 and PO2 of 91. Chest x-ray showed no acute infiltrate or consolidation. She is being admitted for acute severe asthma complicated by acute hypoxic and hypercapnic respiratory failure. Past Medical History Past Medical History (Chronic Problems): Chronic Problems Tobacco abuse (Chronic) Bronchial asthma (Chronic) Allergies lamotrigine [From Lamictal] Allergy (Verified 07/31/19 08:21) Unknown omeprazole Allergy (Verified 07/31/19 08:21) Unknown risperidone Allergy (Verified 07/31/19 08:21) Unknown Home Medications: Ambulatory Orders Medication Instructions Recorded Albuterol Inhaler [Ventolin Hfa] 1 - 2 puff INHALATION Q4H PRN PRN 08/09/17 #1 inhaler Albuterol Aerosols [Ventolin 2.5 mg INHALATION Q4H PRN #25 vial 05/10/19 Aerosols] Surgical History: cholecystectomy, tonsillectomy, - - Tubal ligation. Psychiatric History: No pertinent psych hx FOREST ECONOMIST History: No pertinent FOREST ECONOMIST history Smoking Status: Current every day smoker Tobacco Use: Cigarettes Alcohol: None Drugs: None - *Family History Maternal History Items: No pertinent history, - - Patient mentioned that she does not know her family history of medical problems. Paternal History Items: No pertinent history Review of Systems Constitutional: Denies: Anorexia, Chills, Fever, Weakness Eyes: Denies: Blurred vision, Double vision, Drainage, Redness HEENT: Reports: Nasal Congestion. Denies: Difficulty Hearing, Ear Pain, Eye Pain, Post Nasal Drip, Sore Throat Cardiovascular: Denies: Chest Pain, Chest Pressure, Edema, Heaviness, Light Headedness, Palpitations, Syncope Respiratory: Reports: Cough, Shortness of Breath, Shortness of breath at rest, Shortness of breath upon exertion, Sputum production, Wheezing. Denies: Hemoptysis, Pleuritic Pain Gastrointestinal: Denies: Abdominal Pain, Constipation, Diarrhea, Nausea, Vomiting Genitourinary: Denies: Dysuria, Frequency, Hematuria Musculoskeletal: Denies: Arm Pain, Back Pain, Foot Pain Skin: Denies: Dryness, Rash Neurological: Denies: Balance problems, Blurred vision, Double vision, Change in Speech, Slurred speech, Confusion, Focal weakness, Headaches, Incoordination Psychiatric: Denies: Anxiety, Depression Endocrine: Denies: Change in Body Habitus, Polydipsia, Polyuria VTE Information - Inpt Only VTE Present on Admission: No VTE Mechan Device Prophylaxis: None VTE Pharm Prophylaxis ordered?: No Patient Problems: Active and Suspected Problems Acute respiratory failure (Acute) Acute severe asthma (Acute) - Physical Exam Vitals/I&O's: Vital Signs Temp Pulse Resp BP Pulse Ox 96.9 F L 99 16 123/81 H 92 07/31/19 07:48 07/31/19 10:23 07/31/19 10:23 07/31/19 10:23 07/31/19 10:23 Oxygen Flow Rate (L/min) 3 Oxygen Delivery Method Nasal Cannula Weight: 200 lb 2.876 oz Body Mass Index (BMI) 33.3 Intake and Output for Last 24 Hours 07/29/19 07/30/19 07/31/19 23:59 23:59 23:59 Intake Total 104 / 104 Balance 104 / 104 General: Alert, Oriented x3, Cooperative, - - She is in moderate respiratory distress. HEENT: Atraumatic, PERRLA, EOMI, Normocephalic Oral: Moist Mucosa, No Gingival or Mucosal Lesions/ Ulcerations Neck: Supple, No JVD, Negative Carotid Bruits, Trachea Midline, Thyroid Normal Size and Texture Lungs: No rales, Diminished, Short of Breath, Tachypneic, - - Decreased breath sounds bilateral, bilateral inspiratory and expiratory wheezes. Cardiovascular: Regular rate, Regular Rhythm, Normal S1, Normal S2, PMI Normal, Tachycardic Abdomen: Bowel Sounds Present, Soft, Non Tender, Non-Distended, No Hepato-splenomegaly Extremities: No clubbing, No cyanosis, No edema Skin: No rashes, No breakdown Lymphatic: No Cervical, Supraclavicular, or Inguinal Adenopathy Neurological: Cranial nerves II-XII grossly intact, Motor Exam 5/5 strength throughout Psych/Mental Status: Normal Affect, Appropriate, Alert and oriented to time, place, person, mood and affect Microbiology Past 72 Hours 07/31/19 08:00 Mucosa - Nose Influenza Types A,B Direct FA (AMAYA) - Final Laboratory Results 07/31/19 08:09: WBC 8.4, RBC 4.58, Hgb 12.0, Hct 38.9, MCV 84.9, MCH 26.2 L, MCHC 30.8 L, RDW Std Deviation 50.2 H, RDW Coeff of Chery 16.1 H, Plt Count 341, MPV 10.9, Immature Gran % (Auto) 0.400, Neut % (Auto) 57.4, Lymph % (Auto) 25.2, [place] % (Auto) 10.1 H, Eos % (Auto) 6.3 H, Baso % (Auto) 0.6, Absolute Neuts (auto) 4.8, Absolute Lymphs (auto) 2.12, Nucleated RBC % 0 07/31/19 08:09: Sodium 139, Potassium 3.5, Chloride 104, Carbon Dioxide 32.0, Anion Gap 3 L, BUN 8, Creatinine 0.81, Estim Creat Clear Calc 88.06, Est GFR (MDRD) Af Amer 103, Est GFR (MDRD) Non-Af 85, BUN/Creatinine Ratio 9.8 L, Glucose 144 H, Calcium 8.0 L 07/31/19 08:09: Serum , Qual NEGATIVE 07/31/19 08:14: Specimen Type ART, Sample Site L Radial, pH 7.32 L, Bicarbonate Actual 29.0 H, POC Total CO2 31, Base Excess 3 H, O2 Saturation 96, ABG pCO2 56.6 H, ABG pO2 91, Jermaine Test POS, O2 Delivery Device Nasal Can, Liter Flow 6.0, Blood Gas Notified Whom ED MD, Blood Gas Notified Time 813 Clinical Impression(s) from Imaging Studies Chest X-Ray 07/31/19 07:44 IMPRESSION: Normal x-ray examination of the chest. Electronically Signed: Josue Olsen, at 8:25 EST , Service support , Assessment/Plan All Active Problems Acute respiratory failure (Acute) Acute severe asthma (Acute) This is a 34 years old female patient presented to the emergency room because of shortness of breath, cough and wheezing and she was found to have acute severe asthma complicated by acute combined hypoxic and hypercapnic respiratory failure. #1 acute severe asthma: Chest x-ray reviewed, no acute findings. Patient received DuoNeb x1 and albuterol x4 in the ED and she remained dyspneic, tachypneic and hypoxic. Pulse ox was 65% on room air upon arrival, improved with treatment and now she is requiring up to 6 L. Patient ran out of her albuterol inhaler yesterday. Plan: Admit to PCU, cardiac monitoring, DuoNeb every 6 hours, albuterol PRN, IV Solu-Medrol every 8 hours, respiratory panel for viruses, Robitussin-AC as needed, O2 by nasal cannula as appropriate, incentive spirometer. #2 acute combined hypoxic and hypercapnic respiratory failure/mild respiratory acidosis: ABG revealed pH of 7.32, PCO2 of 56 and PO2 of 91. It is attributed to severe acute asthma. Plan as above. #3 DVT prophylaxis: Low risk patient, ambulate. This note was generated with [employer] software. It may contain incorrect words, spelling, and punctuation that were not noted in checking the note before signing. Code Visit Inpatient E&M: 55004 Init Hosp L2
[2019-07-31] MEDS: 0.9% Normal Saline 1,000 ML 75 ML IV (11:34)
--- NOTE | 2019-07-31 11:57 | NURSING ---
T placed pt on Bipap, shortly after patient removed Bipap mask, requested to fo to RR. After returning to bed she refused to put Bipap back on despite explanation and education on its purpose. pt placed back on 3L NC
--- NOTE | 2019-07-31 12:17 | CPS ---
patient took bipap off and stated she did not want to wear it
--- NOTE | 2019-07-31 14:48 | NURSING ---
Patient admit from ED today @ 1100 with SOB, resp failure. She was very lethargic an drowy on admission to the floor. We attempted to utilize Bipap therapy to help improve her respiratory status but she refused. O2 level was 93% on 3L NC. Patient was very emotional and upset since arrival to floor. At 1415 patient informed RN that she wanted to leave and go home because she has her mother to take care and as well as her own child. She continued to be very emotional and sad but denied any emotional support from RN. It was explained to her the need for her to stay and continue treatment. The physician even spoke with oswaldo tthe bedside that she will be leaving against his professional medical advice. She was very adamant that she will be levaing dispite her current conition. After conversation with her from both Physician and RN, she still requested to leave AMA. AMA papers were signed with RN as witness, her Tele and IV was removed and she left under her own power with the help of her .
--- NOTE | 2019-07-31 14:52 | PCM.DC.SUM ---
Discharge Date and Diagnosis Date of Admission: 07/31/19 Date of Discharge: 07/31/19 - Primary Discharge Diagnosis #1 acute severe asthma. #2 acute hypoxic and hypercapnic respiratory failure/mild respiratory acidosis. - Secondary Discharge Diagnosis Chronic Problems Tobacco abuse (Chronic) Bronchial asthma (Chronic) Hospital Course and Treatment Imaging Results: 07/31/19 07:44 Chest 1 View (Portable) [RAD] Stat Clinical Impression(s) from Imaging Studies Chest X-Ray 07/31/19 07:44 IMPRESSION: Normal x-ray examination of the chest. Electronically Signed: Josue Olsen, at 8:25 EST , Service support , Operations: None Procedures: None Summary of Care Provided: The patient is a 34 year old F patient presented to the emergency room because of shortness of breath, cough and wheezing and she was found to have acute severe asthma complicated by acute combined hypoxic and hypercapnic respiratory failure. Upon arrival to ED, pulse ox was 65% on room air and patient was very dyspneic and tachypneic. She received IV Solu-Medrol, IV magnesium sulfate, DuoNeb and 4 rounds of albuterol nebulizer in the emergency department and patient remained quite dyspneic and tachypneic and she required up to 6 L of oxygen. Chest x-ray showed no acute findings. Routine blood work was unremarkable. Patient was admitted to PCU, started on IV steroids and bronchodilators as well as BiPAP. Same day after few hours from admission, the nurse called me and stated that patient wants to leave the hospital AGAINST MEDICAL ADVICE. I went to the patient's room and I spoke with her. She mentioned that she has mother and daughter at home and she needs to take care of them. I explained to her that when she came in she was in very bad shape and bases condition and help oxygen was very low. I explained to her that if she go home she may come back with a more serious condition. She states that she does not care and she wants to go home. She requested prescriptions for inhalers. I sent prescriptions for albuterol inhaler, Symbicort as well as prednisone for 5 days to her pharmacy. Patient left the hospital AGAINST MEDICAL ADVICE. - Physical Exam Vitals/I&O's: Vital Signs Temp Pulse Resp BP Pulse Ox 98.1 F 82 15 130/76 H 93 07/31/19 11:00 07/31/19 11:45 07/31/19 11:45 07/31/19 11:00 07/31/19 11:00 Oxygen Flow Rate (L/min) 3 Oxygen Delivery Method Nasal Cannula Weight: 199 lb 1.239 oz Body Mass Index (BMI) 33.1 Intake and Output for Last 24 Hours 07/29/19 07/30/19 07/31/19 23:59 23:59 23:59 Intake Total 1326.5 / 1326.5 Balance 1326.5 / 1326.5 General: Alert, Oriented x3, Cooperative, - - Moderately short of breath. HEENT: Atraumatic, PERRLA, EOMI, Normocephalic Oral: Moist Mucosa, No Gingival or Mucosal Lesions/ Ulcerations Neck: Supple, No JVD, Negative Carotid Bruits, Trachea Midline, Thyroid Normal Size and Texture Lungs: No rhonchi, No rales, Diminished, Short of Breath, Wheezes Cardiovascular: Regular rate, Regular Rhythm, Normal S1, Normal S2, PMI Normal Abdomen: Bowel Sounds Present, Soft, Non Tender, Non-Distended, No Hepato-splenomegaly Extremities: No clubbing, No cyanosis, No edema Skin: No rashes, No breakdown Lymphatic: No Cervical, Supraclavicular, or Inguinal Adenopathy Neurological: Cranial nerves II-XII grossly intact, Neuro grossly intact Psych/Mental Status: Normal Affect, Appropriate Microbiology Past 72 Hours 07/31/19 08:00 Mucosa - Nose Influenza Types A,B Direct FA (AMAYA) - Final Laboratory Results 07/31/19 08:09: WBC 8.4, RBC 4.58, Hgb 12.0, Hct 38.9, MCV 84.9, MCH 26.2 L, MCHC 30.8 L, RDW Std Deviation 50.2 H, RDW Coeff of Chery 16.1 H, Plt Count 341, MPV 10.9, Immature Gran % (Auto) 0.400, Neut % (Auto) 57.4, Lymph % (Auto) 25.2, [place] % (Auto) 10.1 H, Eos % (Auto) 6.3 H, Baso % (Auto) 0.6, Absolute Neuts (auto) 4.8, Absolute Lymphs (auto) 2.12, Nucleated RBC % 0 07/31/19 08:09: Sodium 139, Potassium 3.5, Chloride 104, Carbon Dioxide 32.0, Anion Gap 3 L, BUN 8, Creatinine 0.81, Estim Creat Clear Calc 88.06, Est GFR (MDRD) Af Amer 103, Est GFR (MDRD) Non-Af 85, BUN/Creatinine Ratio 9.8 L, Glucose 144 H, Calcium 8.0 L 07/31/19 08:09: Serum , Qual NEGATIVE 07/31/19 08:14: Specimen Type ART, Sample Site L Radial, pH 7.32 L, Bicarbonate Actual 29.0 H, POC Total CO2 31, Base Excess 3 H, O2 Saturation 96, ABG pCO2 56.6 H, ABG pO2 91, Jermaine Test POS, O2 Delivery Device Nasal Can, Liter Flow 6.0, Blood Gas Notified Whom ED MD, Blood Gas Notified Time 813 Home Medications: Medications to take at Discharge RX: Albuterol Aerosols [Ventolin Aerosols] 2.5 mg INHALATION Q4H PRN #25 vial 05/10/19 Budesonide/Formoterol Fumarate [Symbicort 80-4.5 Mcg Inhaler] 2 puff IH BID #3 [email or web address] 07/31/19 RX: Albuterol Inhaler [Ventolin Hfa] 1 - 2 puff INHALATION Q4H PRN PRN #3 inhaler 07/31/19 RX: Prednisone 40 mg PO DAILY #10 tab 07/31/19 Following Prescrptions Were Given to Patient: RX: Prednisone 40 mg PO DAILY #10 tab Transmission Status: Received by [facility] [place] [facility]30 Budesonide/Formoterol Fumarate [Symbicort 80-4.5 Mcg Inhaler] 2 puff IH BID #3 [email or web address] Transmission Status: Received by [facility] [place] [facility] RX: Albuterol Inhaler [Ventolin Hfa] 1 - 2 puff INHALATION Q4H PRN PRN #3 inhaler PRN Reason: Wheezing Transmission Status: Received by [facility] [place] [facility]30 Primary Care Physician: Jamie Zhu MD [Primary Care Provider] - Disposition: Against Medical Advice Minutes spent on discharge:: 27 Patient Condition:: Stable Medical Necessity - Tobacco Use Smoking Status: Current every day smoker Tobacco Use: Cigarettes Meaningful Use Info Meaningful Use Diagnoses (Choose all that apply): None applicable Code Visit OBSV E&M: 52974 Observ/hosp same date L2
== END 2019-07-31 14:35 | disposition left against medical advice (07) ==
LOC: ED 10:24 → PCU 08-03 13:46
PROVIDERS: Admitting Provider Hospitalist; Emergency Provider Emergency Medicine; Family Provider Family Medicine; PCP Family Medicine; Referring Provider Hospitalist; Visit Provider Hospitalist
DX: J45.901 Unspecified asthma with (acute) exacerbation (principal); E87.2 Acidosis; J96.02 Acute respiratory failure with hypercapnia; J96.01 Acute respiratory failure with hypoxia; F17.210 Nicotine dependence, cigarettes, uncomplicated
CPT/HCPCS: 36600; 71045; 80048; 82803; 84703; 85025; 87040; 87633; 87804; 94002; 94640; 96361; 96374; 99218; 99251; 99285; J7030; A4216; G0378; G0463; J3475

== ENCOUNTER 2020-03-08 06:27 | Emergency (ER) | payer MEDICAID, SELFPAY ==
[2019-07-31 11:00] VITALS: BMI 33.1
[2020-03-08 06:28] VITALS: BP 118/102; PULSE 113; RESP 16; TEMP 36.9; O2SAT 95; BMI 34.0
--- NOTE | 2020-03-08 06:36 | RAD_ITS ---
STUDY: X-RAY - LEFT HAND REASON FOR EXAM: Female, 35 years old. hand smashed in door, pain and lacerations to posterior hand surface, swelling TECHNIQUE: 3 view(s) of the hand. COMPARISON: None. FINDINGS: Normal radiocarpal articulation. Normal distal radioulnar joint. Normal visualized carpal bones. Normal carpal articulations Normal carpometacarpal articulation of the thumb. Normal second through fifth carpometacarpal joints. Normal metacarpi. Normal metacarpophalangeal joint of the thumb. Normal interphalangeal joint of the thumb. Normal proximal and distal phalanges of the thumb. Normal metacarpophalangeal joints of the second through fifth fingers. Normal proximal and distal interphalangeal joints of the second through fifth fingers. Normal phalanges of the second through fifth fingers. The soft tissue structures are unremarkable. RAD/Hand Min 3 Views IMPRESSION: Normal x-ray examination of the hand. Electronically Signed: Jackson Danielle MD at 7:02 EDT , Service support ,
--- NOTE | 2020-03-08 06:36 | ED.VIS.GEN ---
History of Present Illness Chief Complaint: Upper Extremity Injury Informant: Patient Narrative: Stated she was walking her dog and she was at the door frame and her kids accidentally closed the door onto her hand. She is having pain in the back of her left hand. Is a throbbing aching pain. Happened just prior to arrival. Suffered a superficial abrasion on the surface. No home treatment. Came in for further evaluation to see if she broke her hand. Denies any injury elsewhere - Past Medical History (1) Acute respiratory failure Status: Acute (2) Acute severe asthma Status: Acute (3) Bronchial asthma Status: Chronic (4) Tobacco abuse Status: Chronic Past Medical History - Allergies and Home Meds Allergies/Adverse Reactions: Allergies lamotrigine [From Lamictal] Allergy (Verified 03/08/20 06:32) Unknown omeprazole Allergy (Verified 03/08/20 06:32) Unknown risperidone Allergy (Verified 03/08/20 06:32) Unknown Primary Care Physician: Jamie Zhu MD [Primary Care Provider] - Prior records reviewed: Yes Past Medical History: - Surgical History: cholecystectomy, tonsillectomy, - - Tubal ligation. Lives: With Family Smoking Status: Current every day smoker Alcohol: None Drugs: None - Family History Maternal Family History: Reports: No pertinent history, - - Patient mentioned that she does not know her family history of medical problems. Paternal Family History: Reports: No pertinent history Review of Systems General: Denies: Chills, Fever, Sweats Eyes: Denies: Visual changes - bilaterally, Diplopia ENT: Denies: Rhinorrhea, Sore throat Cardiovascular: Denies: Chest pain, Palpitations Respiratory: Denies: Dyspnea, Cough, Dyspnea on exertion Gastrointestinal: Denies: Abdominal pain, Nausea, Vomiting, Diarrhea, Melena, Hematochezia Genitourinary: Denies: Dysuria, Hematuria, Frequency Musculoskeletal: Reports: Extremity Pain. Denies: Back pain Skin: Reports: Abrasions - Punctate abrasion to the posterior surface dorsum of the left hand. Denies: Rash, Wounds Neurological: Denies: Headache, Weakness, Numbness Physical Exam Vital Signs/Narrative: Vital Signs Temp Pulse Resp BP Pulse Ox 03/08/20 06:28 98.5 F 113 H 16 118/102 H 95 General: Well nourished, Well developed, No Acute Distress Head: Normocephalic, Atraumatic Eyes: Perrl, EOMI ENT: Moist mucous membranes, No rhinorrhea Neck: Supple, Nontender Cardiovascular: Regular rate, Regular rhythm, No murmurs Respiratory: No distress, CTA bilaterally, Chest nontender Abdomen: Soft, Nontender, Nondistended, Normal bowel sounds Back: Nontender, Normal Inspection Extremities: Tenderness - Tenderness to the central portion of the dorsum of the left hand over the third metacarpal with mild bruising. Skin: - - Punctate abrasion to the posterior left hand Neurological: Alert, Oriented x3, Cranial nerves II-XII grossly intact, Normal Strength, Normal Sensation Psychological: Normal affect, Normal Mood Diagnostic/Tx/Re-eval - Medical Decision Making Given ibuprofen and ice. X-ray of the left hand obtained. X-ray is negative for fracture. Given Jaun wrap. At this time she just has a bruise to the back of her hand ED Disposition - Plan for ED Patient: Disposition: Home or Assisted Living Diagnosis: Hand contusion, Abrasion Instructions: ED HAND CONTUSION Referrals: Jamie Zhu MD [Primary Care Provider] -
[2020-03-08] MEDS: Ibuprofen 600 MG Tablet PO (06:39)
== END 2020-03-08 06:57 | disposition home or self-care (01) ==
LOC: ED 06:55
PROVIDERS: Emergency Provider Emergency Medicine; PCP Family Medicine
DX: S60.222A Contusion of left hand, initial encounter (principal); W23.0XXA Caught, crushed, jammed, or pinched between moving objects, initial encounter; Y93.K1 Activity, walking an animal; Y92.89 Other specified places as the place of occurrence of the external cause; F17.200 Nicotine dependence, unspecified, uncomplicated; J45.909 Unspecified asthma, uncomplicated
CPT/HCPCS: 73130; 99283